=== PATIENT | male | born 1985 | race Caucasian/White ===

== ENCOUNTER → 2017-07-17 | Outpatient (CLI) | payer OTHER ==
--- NOTE | 2017-07-17 16:36 | DIAGNOSTIC IMAGING REPORT ---
ULTRASOUND SOFT TISSUES NECK CLINICAL HISTORY: Lymphadenopathy. COMPARISON STUDY: No priors. FINDINGS: Real-time, grayscale, and color flow sonography of the soft tissues of the left lateral neck is performed at the indicated site of interest. There is a well-circumscribed nonvascular hypoechoic structure at this site which blends into the surrounding subcutaneous fat. This measures 1.1 x 0.3 x 1.3 cm and is typical in appearance for a small lipoma. No cervical adenopathy or concerning mass lesion is identified. IMPRESSION: 1. No cervical lymphadenopathy is identified as clinically queried. 2. A hypoechoic structure at the site of interest is pathologically indeterminant but typical in appearance for a small lipoma. Clinical correlation will be required. Electronically signed by: Raul Winslow M.D. 07/17/2017 4:35 PM Dictated Date/Time: 07/17/2017 4:33 PM
== END | disposition home or self-care (01) ==
LOC: C.ULTR 16:04
PROVIDERS: ATTEND Nurse Practitioner Family
DX: R59.1 Generalized enlarged lymph nodes (principal)